=== PATIENT | female | born 1955 ===

== ENCOUNTER → 2023-07-05 10:52 | Outpatient (REF) | payer MEDICARE, OTHER, SELFPAY ==
[2023-07-05 12:54] LABS: ALT (SGPT) 30 U/L (0-35); AST (SGOT) 33 U/L (14-36); Albumin 4.6 g/dl (3.5-5.0); Alkaline Phosphatase 80 U/L (38-126); Blood Urea Nitrogen 16 mg/dl (7-17); Carbon Dioxide 26 mmol/L (22-30); Chloride 106 mmol/L (98-107); Glucose 90 mg/dl (70-99); Sodium 138 mmol/L (135-145); Total Bilirubin 0.7 mg/dl (0.2-1.3); Total Protein 6.7 g/dl (6.3-8.2); eGFR > 60.00
== END ==
LOC: HWLAB 10:52
PROVIDERS: ATTENDING PHYSICIAN Internal Medicine Cardiovascular Disease
DX: Z01.818 Encounter for other preprocedural examination (principal)
CPT/HCPCS: 36415; 80053

== ENCOUNTER → 2023-07-12 07:51 | Outpatient (REF) | payer MEDICARE, OTHER, SELFPAY | LOC: HWRAD 07:51 | PROVIDERS: ATTENDING PHYSICIAN Internal Medicine Cardiovascular Disease | DX: I10 Essential (primary) hypertension (principal) | CPT/HCPCS: 70498; Q9967 ==

== ENCOUNTER 2025-01-31 11:44 | Emergency (ER) | payer MEDICARE, OTHER, SELFPAY ==
[2025-01-31 11:47] VITALS: BP 127/60; BMI 21.1
[2025-01-31 11:48] VITALS: BP 127/60
--- NOTE | 2025-01-31 11:59 | ED.GENMED ---
History of Present Illness
General
Chief Complaint: Musculo-Skeletal Complaint
Source: patient
Exam Limitations: none
Time Seen by Provider: 01/31/25 11:50
History of Present Illness
History of Present Illness:
70yoF with a history of hypertension and anxiety presenting via EMS for evaluation of URI symptoms. Patient has been feeling under the weather for the past 4 days. Her has been is currently sick with COVID. She was feeling worse last night and
checked her heart rate at home which was ranging from 80-120s. Her heart rate was normal when she checked this morning. She is also experiencing chills, subjective fevers, cough, body aches, and pain in her upper back bilaterally. She called her
PCP today and was told to go to the ED to obtain a CXR. She denies any shortness of breath or pleuritic pain. No vomiting or diarrhea.
Past History
Past History
ED Past Medical History: HTN, Hypercholesterolemia and Psychiatric (Anxiety)
Social History
Tobacco: Non-smoker
Alcohol: Occasional
Drug: None
Personal:
Living: with family
Employment: Employed
Phy Exam
General Physical Exam
General Presentation: well appearing and no apparent distress
General Skin: warm and dry
General Habitus: normal
General Mental: alert
ENT Exam
ENT Exam: normocephalic
Cardiovascular Exam
Cardiovascular Exam: regular rate/rhythm and no edema
Pulmonary Exam
Pulmonary Exam: lungs clear, no respiratory distress, no rales, no crackles, no rhonchi and no wheezing
Neurological Exam
Neurological Exam: alert
[place] Coma Scale
Eye Opening: Spontaneous
Verbal Response: Oriented
Motor Response: Obeys Commands
GCS Total Score: 15
Musculoskeletal Exam
Musculoskeletal Exam: other (+Reproducible tenderness to bilateral trapezius muscles)
Skin Exam
Skin Exam: normal color and warm/dry
Psychiatric Exam
Psychiatric Exam: normal mood/affect
Course
Orders/Labs/Results
Orders:
Orders
01/31/25 11:45
EKG [Electrocardiogram (*1)] Urgent
Reason for Study: Bradycardia / Tachycardia
01/31/25 11:46
EKG- Treatment ONCE
01/31/25 11:52
CBC/With Diff [Complete Blood Count/With Diff] Urgent
CMP [Comprehensive Metabolic Panel] Urgent
COVID-19 Antigen Urgent
Source: Nasal Swab
01/31/25 11:53
Chest [CR Chest - 2 Views ] Urgent
Comment:
Reason For Exam: cough
01/31/25 11:59
0.9% Sodium Chloride 1000 ml [Nss] 1,000 ml IV BOLUS
Abnormal Lab Results
01/31/25
11:52
RBC 3.92 L 10^6/uL
(4.20-5.40)
Hct 35.8 L %
(37.0-47.0)
MCH 31.1 H pg
(27.0-31.0)
MPV 11.5 H fL
(7.4-10.4)
Glucose 139 H mg/dl
(70-99)
SARS-CoV-2 Antigen Positive A
(Negative)
01/31/25 11:52
01/31/25 11:52
Vital Signs
Initial and Last Documented VS:
Initial Vital Signs
Temp Pulse Resp BP Pulse Ox
98.7 F 68 14 127/60 98
01/31/25 11:47 01/31/25 11:47 01/31/25 11:47 01/31/25 11:47 01/31/25 11:47
Last Documented Vital Signs
Temp Pulse Resp BP Pulse Ox
98.7 F 64 11 127/60 98
01/31/25 11:47 01/31/25 12:00 01/31/25 12:00 01/31/25 11:48 01/31/25 12:06
MDM/Problems Addressed
Differential Diagnosis Includes:
70yoF here with URI symptoms x 4 days. currently sick with COVID. HR reportedly elevated yesterday at home although HR is 68 on arrival. Remainder of vitals are stable and oxygen saturation 98% on room air. Also c/o upper back pain that is
reproducible on exam. Differential diagnosis includes but is not limited to: COVID, musculoskeletal pain from coughing, pneumonia, doubt PE given lack of pleuritic pain and reassuring vital signs
Initial ED plan: EKG obtained during initial exam which shows NSR with a single PVC. No ischemic changes noted. Will check CBC, CMP, COVID swab, and CXR. IV fluid bolus.
*Pulse Oximetry
SaO2: 98
Oxygen Mode of Delivery: Room air
Patient hypoxic: no
*EKG
Interpreted by ED Provider?: Yes
EKG Intrepretation Date: 01/31/25
Heart Rate: 69
Rate: normal
Rhythm: sinus and PVC's
[place]: normal axis
Interval: normal interval
QRS Pattern: normal QRS
Ischemia: no ischemia
*Critical Care Note
Total Time (30-74mins, 75-104mins- exclusive of procedures): Not Applicable
Update Note
Update Note:
COVID swab is positive. Labs unremarkable including normal white count and renal function. Chest x-ray is clear without infiltrates. Oxygen saturation 100% on reassessment. She is stable for discharge. Patient's PCP did give her a prescription
for Paxlovid although patient is not planning to fill this due to it costing her around $500. Supportive care discussed. She was instructed to follow-up with her PCP and ED return precautions reviewed. Patient in agreement with plan and was
discharged in stable condition.
ED Attending Note
-
Portions of this chart may have been created with voice recognition software.� Occasional wrong word or��sound alike� substitutions may have occurred due to the inherent limitations of voice recognition software.
Discharge Plan
Departure
Patient Disposition: Home (Routine Discharge)
Date of Disposition: 01/31/25
Time of Disposition: 14:22
Patient with high blood pressure during this ER visit?: No
Discharge Problem:
COVID-19
Instructions: COVID-19 in adults - ED (DC)
Prescriptions:
No Action
multivitamin Tablet
1 tab PO DAILY
losartan 25 mg Tablet
25 mg PO BID
magnesium oxide 500 mg Tablet
500 mg PO DAILY
metoprolol succinate [Toprol XL] 25 mg Tablet Extended Release 24 Hr
25 mg PO DAILY
coenzyme Q10 [CoQ-10] 100 mg Capsule
100 mg PO DAILY
Referrals:
Gaviota Egan MD [Family Provider, Family Practice]
Activity Restrictions/Additional Instructions:
Drink plenty of fluids and rest. Use honey for cough and take Tylenol as needed for body aches/fever.
Please follow-up with your family doctor next week. Return to the ER with any new or worsening symptoms including trouble breathing.
Interventions
Interventions:
*Risk Screen - Suicide Last Done: 01/31/25 11:47
*General Assessment Last Done: 01/31/25 11:47
*Neglect/Abuse Screening Last Done: 01/31/25 11:47
*ED- Fall Risk Assessment Last Done: 01/31/25 11:47
*ED COVID-19 Vaccine History Last Done: 01/31/25 11:47
*Nursing Disposition Last Done: 01/31/25 15:06
ED-Musculoskeletal Assessment Last Done: 01/31/25 12:15
Discharge Date and Time
Discharge Date/Time: 01/31/25 15:08
Print Language: Bolivian
[2025-01-31 12:01] LABS: Hematocrit 35.8 % (37.0-47.0); Hemoglobin 12.2 g/dL (12.0-16.0); Mean Corp Hgb Conc. 34.1 g/dL (33.0-37.0); Mean Corpuscular Volume 91.3 fL (81.0-99.0); Nucleated Red Blood Cells % 0 %; Platelet Count 160 10^3/uL (130-400); Red Cell Dist. Width 12.8 % (11.5-14.5)
[2025-01-31] MEDS: NSS 1000 IV (12:10)
[2025-01-31 12:11] LABS: COVID-19 Antigen Positive (Negative)
[2025-01-31 12:35] LABS: ALT (SGPT) 18 U/L (0-35); AST (SGOT) 26 U/L (14-36); Albumin 4.1 g/dl (3.5-5.0); Alkaline Phosphatase 63 U/L (38-126); Blood Urea Nitrogen 15 mg/dl (7-17); Calcium 8.9 mg/dl (8.4-10.2); Carbon Dioxide 24 mmol/L (22-30); Chloride 106 mmol/L (98-107); Estimated Creatinine Clearance 83 ml/min; Glucose 139 mg/dl (70-99); Potassium 3.8 mmol/L (3.5-5.1); Sodium 137 mmol/L (135-145); Total Protein 6.5 g/dl (6.3-8.2); eGFR > 60.00
== END 2025-01-31 15:08 | disposition home or self-care (01) ==
LOC: EMR 11:44
PROVIDERS: EMERGENCY PHYSICIAN Emergency Medicine; FAMILY PHYSICIAN Family Medicine
DX: U07.1 COVID-19 (principal); I10 Essential (primary) hypertension; F41.9 Anxiety disorder, unspecified; E78.00 Pure hypercholesterolemia, unspecified
CPT/HCPCS: 99283; 96360; 71046; 80053; 85025; 87811; 93005

== ENCOUNTER 2025-05-14 13:51 | Emergency (ER) | payer MEDICARE, OTHER, SELFPAY ==
[2025-05-14 13:56] VITALS: BP 153/77
[2025-05-14 14:10] LABS: Hematocrit 40.0 % (37.0-47.0); Hemoglobin 13.3 g/dL (12.0-16.0); Mean Corp Hgb Conc. 33.3 g/dL (33.0-37.0); Mean Corpuscular Volume 92.4 fL (81.0-99.0); Nucleated Red Blood Cells % 0 %; Platelet Count 187 10^3/uL (130-400); Red Cell Dist. Width 13.1 % (11.5-14.5)
[2025-05-14 14:34] LABS: ALT (SGPT) 17 U/L (0-35); AST (SGOT) 21 U/L (14-36); Albumin 4.7 g/dl (3.5-5.0); Alkaline Phosphatase 86 U/L (38-126); Blood Urea Nitrogen 11 mg/dl (7-17); Calcium 9.4 mg/dl (8.4-10.2); Carbon Dioxide 26 mmol/L (22-30); Chloride 103 mmol/L (98-107); Glucose 97 mg/dl (70-99); Lipase 69 U/L (23-300); Potassium 4.1 mmol/L (3.5-5.1); Sodium 135 mmol/L (135-145); Total Protein 7.0 g/dl (6.3-8.2); eGFR > 60.00
--- NOTE | 2025-05-14 19:59 | ED.GENMED ---
History of Present Illness
General
Chief Complaint: Abdominal Pain
Source: patient
Exam Limitations: none
Time Seen by Provider: 05/14/25 19:31
History of Present Illness
History of Present Illness:
70yoF with a history of hypertension presenting for evaluation of abdominal pain. Patient reports pain in her right lower abdomen and periumbilical region for the past 4 days. She initially lifted a heavy object pain started. Pain has been
intermittent and has been gradually worsening. She was in bed last night when she felt like something 'exploded' in her abdomen. Pain radiates to the right upper leg. She has not taken anything [id number] for her symptoms. She is worried
that she may have appendicitis. She has a history of gallbladder issues but this feels different. She denies any fevers, chills, vomiting, urinary symptoms, diarrhea, chest pain, shortness of breath.
Past History
Past History
ED Past Medical History: HTN, Hypercholesterolemia and Psychiatric (Anxiety)
Social History
Tobacco: Non-smoker
Alcohol: Occasional
Drug: None
Personal:
Living: with family
Employment: Employed
Phy Exam
General Physical Exam
General Presentation: well appearing and no apparent distress
General age: appears stated age
General Skin: warm and dry
General Habitus: normal and elderly
General Mental: alert
General Hydration: appears well hydrated
ENT Exam
ENT Exam: normocephalic
Pulmonary Exam
Pulmonary Exam: no respiratory distress
Gastrointestinal Exam
Gastrointestinal Exam: soft, non distended and other (Mild tenderness to R mid abdomen. Abdomen soft, non-distended. No rebound or guarding.)
Neurological Exam
Neurological Exam: alert
[place] Coma Scale
Eye Opening: Spontaneous
Verbal Response: Oriented
Motor Response: Obeys Commands
GCS Total Score: 15
Skin Exam
Skin Exam: normal color and warm/dry
Psychiatric Exam
Psychiatric Exam: normal mood/affect
Course
Orders/Labs/Results
Orders:
Orders
05/14/25 14:04
Complete Blood Count/With Diff Urgent
Comprehensive Metabolic Panel Urgent
Lipase Urgent
05/14/25 19:39
Urinalysis Reflex To Culture Urgent
Date Specimen was Collected: 05/14/25
Time Specimen was Collected: 19:39
Urine Microscopic Reflex Cult Urgent
05/14/25 19:59
CT Abd/pel W Iv And Oral Contr Urgent
Comment:
Reason For Exam: RLQ pain
Iohexol [Omnipaque] See Protocol PO NOW STA
Abnormal Lab Results
05/14/25 05/14/25
14:04 19:39
MPV 11.6 H fL
(7.4-10.4)
Urine Ketones 2+ A
(Negative)
Urine Bacteria (Reflex) Few A
(Negative)
Urine Albumin (Reflex) 1+ A
(Neg - Trace)
05/14/25 14:04
05/14/25 14:04
Vital Signs
Initial and Last Documented VS:
Initial Vital Signs
Temp Pulse Resp BP Pulse Ox
97.9 F 61 18 153/77 99
05/14/25 13:56 05/14/25 13:56 05/14/25 13:56 05/14/25 13:56 05/14/25 13:56
Last Documented Vital Signs
Temp Pulse Resp BP Pulse Ox
97.9 F 61 16 153/77 99
05/14/25 13:56 05/14/25 13:56 05/14/25 22:00 05/14/25 13:56 05/14/25 20:02
MDM/Problems Addressed
Differential Diagnosis Includes:
70yoF here with RLQ pain x 4 days. Started after lifting a heavy object. Worried about appendicitis. She is hypertensive with otherwise normal vitals. She is well appearing in no distress. No signs of peritonitis on abdominal exam. Differential
diagnosis includes: musculoskeletal, appendicitis, kidney stone, biliary colic, mesenteric adenitis
Initial ED plan: Abdominal labs obtained in triage which are unremarkable including normal white count, renal function, LFTs. Will check CT abdomen with IV/PO contrast.
*Pulse Oximetry
SaO2: 99
Patient hypoxic: no
*Critical Care Note
Total Time (30-74mins, 75-104mins- exclusive of procedures): Not Applicable
Update Note
Update Note:
Appendix is normal on CT scan. 'Cannot exclude some mild thickening of the wall of the terminal ileum such as an inflammatory and/for infectious process.' There is also a likely small pericardial effusion although she has no symptoms of this. She
reports having an outpatient stress test and echocardiogram earlier this year which was reportedly normal. No indication for hospitalization. Supportive care discussed. She has an appt scheduled with her java j2ee software engineer next week. She was also
advised to f/u with her outpatient associate financial advisor. ED return precautions reviewed and she was discharged in stable condition.
ED Attending Note
-
Portions of this chart may have been created with voice recognition software.� Occasional wrong word or��sound alike� substitutions may have occurred due to the inherent limitations of voice recognition software.
Discharge Plan
Departure
Patient Disposition: Home (Routine Discharge)
Date of Disposition: 05/14/25
Time of Disposition: 23:16
Patient with high blood pressure during this ER visit?: Yes
Discharge Problem:
Nonspecific abdominal pain
Instructions: Abdominal Pain
Prescriptions:
No Action
multivitamin Tablet
1 tab PO DAILY
losartan 25 mg Tablet
25 mg PO BID
magnesium oxide 500 mg Tablet
500 mg PO DAILY
metoprolol succinate [Toprol XL] 25 mg Tablet Extended Release 24 Hr
25 mg PO DAILY
coenzyme Q10 [CoQ-10] 100 mg Capsule
100 mg PO DAILY
Referrals:
UNKNOWN - PT DOES,NOT KNOW [Family Provider]
Activity Restrictions/Additional Instructions:
Apply heat to affected area. Take Tylenol as needed for pain. Eat a bland diet (bananas, rice, applesauce, toast).
Please follow-up with your java j2ee software engineer next week as previously scheduled. You should also follow-up with your associate financial advisor for a possibly enlarged heart seen on today's CT scan.
Return to the ER with any new or worsening symptoms including severe pain or fevers.
Interventions
Interventions:
*General Assessment Last Done: 05/14/25 20:00
*Neglect/Abuse Screening Last Done: 05/14/25 20:00
*ED COVID-19 Vaccine History Last Done: 05/14/25 20:00
*ED Influenza Vaccine History Last Done: 05/14/25 20:00
[facility] Risk Assessment Tool Last Done: 05/14/25 20:00
*Risk Screen - Suicide (C-SSRS) Last Done: 05/14/25 20:00
*Nursing Disposition Last Done: 05/14/25 23:49
PP-Jrvxqb-Mbyitzuued Assessment Last Done: 05/14/25 20:00
Discharge Date and Time
Discharge Date/Time: 05/14/25 23:50
Print Language: Mosotho
[2025-05-14 20:18] LABS: Urine Character Slightly Cloudy (Clear)
[2025-05-14] MEDS: OMNIPAQUE 50 ML PO (20:19)
[2025-05-14 20:31] LABS: Urine Red Blood Cell 0-2 /HPF (0-2); Urine Squamous Cell 0-2 /LPF (Few); Urine White Cell 0-2 /HPF (0-5)
== END 2025-05-14 23:50 | disposition home or self-care (01) ==
LOC: EMR 13:51
PROVIDERS: Emergency Medicine; Physician Assistant; EMERGENCY PHYSICIAN Student in an Organized Health Care Education/Training Program
DX: M79.661 Pain in right lower leg (principal); I10 Essential (primary) hypertension; E78.00 Pure hypercholesterolemia, unspecified
CPT/HCPCS: 99284; 74177; 80053; 81003; 81015; 83690; 85025; Q9967